=== PATIENT | female | born 1960 | race African-American/Black ===

== ENCOUNTER 2016-11-09 20:41 | Emergency (ER) | payer SELFPAY ==
[2016-11-09 20:43] VITALS: BP 175/87; PULSE 66; RESP 16; TEMP 98.3; O2SAT 100
== END 2016-11-09 21:00 | disposition left against medical advice (07) ==
LOC: NED 20:41
DX: R21 Rash and other nonspecific skin eruption (principal)
CPT/HCPCS: 99281